=== PATIENT | female | born 1950 | race Two or more races ===

== ENCOUNTER → 2024-02-06 | Outpatient (CLI) | payer MEDICARE, MEDICAID | END | disposition home or self-care (01) | LOC: Rad HDHVI 08:22 | PROVIDERS: ATTEND Internal Medicine Cardiovascular Disease | DX: R07.89 Other chest pain (principal) | CPT/HCPCS: 93306 ==

== ENCOUNTER → 2024-02-14 | Outpatient (CLI) | payer MEDICARE, MEDICAID ==
[~2024-02-14] VITALS: Ht 157.5 cm; Wt 63.5 kg
== END | disposition home or self-care (01) ==
LOC: Rad HDHVI 08:16
PROVIDERS: ATTEND Internal Medicine Cardiovascular Disease
DX: I10 Essential (primary) hypertension (principal); R07.89 Other chest pain; E78.00 Pure hypercholesterolemia, unspecified; I48.91 Unspecified atrial fibrillation
CPT/HCPCS: 78452; 93017; 96374; A9500

== ENCOUNTER 2024-03-19 08:39 | Day surgery (SDC) | payer MEDICARE, MEDICAID ==
[2024-03-18 12:49] LABS: Basophils # (auto) 0 10 ^3/uL (0-0.2); Basophils % (auto) 0.3 % (0.0-2.0); Eosinophils # (auto) 0 10 ^3/uL (0-0.8); Eosinophils % (auto) 0.2 % (0.0-7.0); Hematocrit 43.1 % (36.0-46.0); Hemoglobin 14.8 g/dL (12.2-16.2); Lymphocytes # (auto) 1.2 10 ^3/uL (0.4-5.4); Lymphocytes % (auto) 18.5 % (10.0-50.0); Mean Corpuscular Hemoglobin 29.8 pg (28.0-32.0); Mean Corpuscular Hgb Conc. 34.5 g/dL (32.0-36.0); Mean Corpuscular Volume 86.5 fL (80.0-100.0); Monocytes # (auto) 0.5 10 ^3/uL (0-1.3); Monocytes % (auto) 7.5 % (0.0-12.0); Neutrophils # (auto) 4.8 10 ^3/uL (1.6-8.6); Neutrophils % (auto) 73.5 % (37.0-80.0); Nucleated Red Blood Cells % 0.1 %; Platelet Count (auto) 196 10^3/uL (140-450); Red Blood Cells 4.98 10^6/uL (4.0-5.20); Red Cell Distribution Width 14.9 % (11.8-14.3); White Blood Cell 6.5 10^3/uL (4.4-10.8)
[2024-03-18 13:05] LABS: Chloride 98 mmol/L (98-107); Potassium 3.9 mmol/L (3.5-5.1); Sodium 130 mmol/L (136-145)
[2024-03-18 13:06] LABS: Anion Gap 5 (5-15); Carbon Dioxide 27 mmol/L (20-30)
[2024-03-18 13:07] LABS: Calcium 10.1 mg/dL (8.7-10.4)
[2024-03-18 13:11] LABS: INR 1.12 (0.9-1.15); Partial Thromboplastin Time 29.6 SEC (24.5-34.5); Prothrombin Time 11.8 sec (9.3-11.8)
[2024-03-18 13:12] LABS: BUN/Creatinine Ratio 16.9 (10.0-20.0); Blood Urea Nitrogen 12 mg/dL (9-23); Glucose 102 mg/dL (74-106)
[~2024-03-19] VITALS: Ht 157.5 cm; Wt 62.1 kg
[2024-03-19] VITALS (9 sets, daily range): BP systolic 114–139; BP diastolic 65–79; PULSE 64–88; RESP 13–18; O2SAT 96–98
[2024-03-19] MEDS ORDERED: MIDAZOLAM HCL 2MG/2ML 2ml VIAL (1mg/ml) ONE (10:01)
[2024-03-19] MEDS ORDERED: LIDOCAINE 2%HCL (LOCAL ANESTH.) INJ 20ML MDV ONE (10:01)
[2024-03-19] MEDS ORDERED: fentaNYL CITRATE 100 MCG/2 ML VL ONE (10:01)
[2024-03-19] MEDS ORDERED: HEPARIN SODIUM (PORCINE) 5000 UNITS/ML 1ML VIAL ONE (10:40)
[2024-03-19] MEDS ORDERED: IOHEXOL 350 MG/ML 100ML IJ ONE (10:55)
--- NOTE | 2024-03-19 11:31 | DVHDS ---
DATE OF DISCHARGE: 03/19/2024 DISCHARGE DIAGNOSES: The patient with atrial fibrillation, with sick sinus syndrome, with pauses. HOSPITAL COURSE: The patient underwent successful leadless permanent pacemaker implantation Micra Medtronic device without any complication. The patient is now being discharged home. I have instructed her to hold anticoagulation until Saturday. She is to follow up with me in one day for chest x-ray and EKG and the patient also to be on Keflex for at least 5 days. Stable at the time of discharge. DISPOSITION: Home. ACTIVITY: As instructed. DIET: Will be 2 gram sodium diet. Pacing insertion site, right venous venotomy site was stable. No bleeding. Successful deployment of Perclose device. Chema Francis MD SA/GRANT TID: [id number] RECEIPT: [id number]
--- NOTE | 2024-03-19 11:46 | DVHOP ---
DATE OF SURGERY: 03/19/2024 PROCEDURE PERFORMED: Micra permanent pacemaker implantation Medtronic device. INDICATION: The patient with chronic atrial fibrillation, now with pauses lasting more than 4 seconds. DESCRIPTION OF PROCEDURE: The patient was prepped and draped in a sterile condition. Conscious sedation was given to the patient. Using 2% lidocaine, right groin was anesthetized. Following that, using a Cook needle right femoral vein was engaged with Seldinger technique. A 6-Ukrainian sheath introduced into the right femoral vein. Two Perclose devices were then deployed per protocol. Then, using progressive dilatation using dilators, we were able to progress from a 6 to a 9 to a 12 to an 18 and finally a 24-Ukrainian sheath using a Lunderquist wire as a support wire. The sheath was then placed in the inferior segment of the right atrium. The delivery device was then deployed into the right ventricle. Appropriate orientation was made applying into the septum. The device was then delivered into the low septum. Threshold parameters were obtained. Once appropriate threshold parameters, the device was secured with at least two tyings, adequately anchored. The device was then released. There were no complications. The patient tolerated the procedure. Right femoral venotomy site was then closed using the Perclose device. RESULTS: The patient had Medtronic Micra leadless pacemaker inserted for chronic atrial fibrillation with pauses. Device model number is [id number]. Serial number [id number]. THRESHOLD PARAMETERS: -wave amplitude of 15.1 millivolts. Impedance of 790 ohms. Pacing threshold of 1.3 volts at 0.24 milliseconds. The pacing amplitude was set at 2.5 millivolts. Pulse width of 0.24. Sensitivity of 2.0. Pacing polarity was bipolar. Sensing polarity was bipolar. At this time, the patient has successful implantation of Medtronic Micra permanent pacemaker leadless system. Chema Francis MD SA/SHELLEY/ALPHONSO TID: [id number] RECEIPT: [id number]
--- NOTE | 2024-03-19 11:54 | DVH ---
EXAM: XY CHEST PORTABLE Indication:S/P PACEMAKER Technique: Single frontal view of the chest was obtained Comparison: None FINDINGS: Lines and Tubes: None Lungs: No focal consolidation. Pleura: No effusion. No pneumothorax. Cardiomediastinal contours: Unremarkable Bones: No acute osseous abnormality. IMPRESSION: No acute cardiopulmonary disease.
[2024-03-19] MEDS ORDERED: APIX2.5T PO (13:06)
[2024-03-19] MEDS ORDERED: HYDR12.59 PO (13:06)
[2024-03-19] MEDS ORDERED: LEVO100T8 PO (13:06)
[2024-03-19] MEDS ORDERED: ATOR20TA50 PO (13:06)
[2024-03-19] MEDS ORDERED: ENAL1TAB42 PO (13:06)
--- NOTE | 2024-04-01 17:53 | ECG ---
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
--- NOTE | 2024-04-08 10:18 | ECG ---
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
== END 2024-03-19 13:52 | disposition home or self-care (01) ==
LOC: CATH 08:39
PROVIDERS: ATTEND Internal Medicine Cardiovascular Disease
DX: I49.5 Sick sinus syndrome (principal); Z00.6 Encounter for examination for normal comparison and control in clinical research program; I48.20 Chronic atrial fibrillation, unspecified; I44.30 Unspecified atrioventricular block; I10 Essential (primary) hypertension; Z79.899 Other long term (current) drug therapy; Z82.49 Family history of ischemic heart disease and other diseases of the circulatory system; R07.9 Chest pain, unspecified; R06.02 Shortness of breath; R00.2 Palpitations; R00.1 Bradycardia, unspecified
CPT/HCPCS: 33274; 71045; 93005; C1769; C1786; C1894; J1644; J2250; J3010; Q9967; 36415; 80048; 85025; 85610; 85730; 99152; 99153

== ENCOUNTER → 2024-03-27 | Outpatient (CLI) | payer MEDICARE, MEDICAID ==
[~2024-03-27] MED LIST: APIX2.5T PO; ATOR20TA50 PO; ENAL1TAB42 PO; HYDR12.59 PO; LEVO100T8 PO
== END | disposition home or self-care (01) ==
LOC: Rad HDHVI 10:29
PROVIDERS: ATTEND Internal Medicine Cardiovascular Disease
DX: R06.02 Shortness of breath (principal); Z95.0 Presence of cardiac pacemaker
CPT/HCPCS: 71046

== ENCOUNTER 2024-04-05 05:48 | Inpatient (IN) | payer MEDICARE, MEDICAID ==
[~2024-04-05] VITALS: Ht 154.9 cm; Wt 60.2 kg
[2024-04-05 07:02] LABS: Basophils # (auto) 0 10 ^3/uL (0-0.2); Basophils % (auto) 0.3 % (0.0-2.0); Eosinophils # (auto) 0 10 ^3/uL (0-0.8); Eosinophils % (auto) 0.1 % (0.0-7.0); Hematocrit 41.3 % (36.0-46.0); Hemoglobin 14.2 g/dL (12.2-16.2); Lymphocytes # (auto) 0.9 10 ^3/uL (0.4-5.4); Lymphocytes % (auto) 11.8 % (10.0-50.0); Mean Corpuscular Hemoglobin 29.4 pg (28.0-32.0); Mean Corpuscular Hgb Conc. 34.4 g/dL (32.0-36.0); Mean Corpuscular Volume 85.4 fL (80.0-100.0); Monocytes # (auto) 0.4 10 ^3/uL (0-1.3); Monocytes % (auto) 5.5 % (0.0-12.0); Neutrophils # (auto) 6.4 10 ^3/uL (1.6-8.6); Neutrophils % (auto) 82.3 % (37.0-80.0); Platelet Count (auto) 183 10^3/uL (140-450); Red Blood Cells 4.84 10^6/uL (4.0-5.20); Red Cell Distribution Width 15.4 % (11.8-14.3); White Blood Cell 7.8 10^3/uL (4.4-10.8)
[2024-04-05 07:19] VITALS: PULSE 64; RESP 18; O2SAT 97
[2024-04-05] MEDS: ASPirin 325 MG TAB PO ONE (07:19)
[2024-04-05 07:21] LABS: Alanine Aminotransferase 235 U/L (7-40); Albumin 4.5 g/dL (3.2-4.8); Alkaline Phosphatase 143 U/L (46-116); Anion Gap 6 (5-15); Aspartate Aminotransferase 303 U/L (13-40); BUN/Creatinine Ratio 20.3 (10.0-20.0); Bilirubin, Total 1.1 mg/dL (0.2-1.0); Blood Urea Nitrogen 15 mg/dL (9-23); Calcium 10.1 mg/dL (8.7-10.4); Carbon Dioxide 26 mmol/L (20-30); Chloride 99 mmol/L (98-107); Glucose 114 mg/dL (74-106); Sodium 131 mmol/L (136-145); Total Protein 7.6 g/dL (5.7-8.2)
[2024-04-05 07:46] LABS: Urine Bacteria None Seen /hpf (None Seen)
[2024-04-05 07:54] LABS: Urine Blood Negative /uL (Negative); Urine Clarity Clear (Clear); Urine Color Light-Yellow (Yellow); Urine Protein, UAD Negative (Negative); Urine Specific Gravity 1.011 (1.001-1.035); Urine Urobilinogen Normal (Negative); Urine WBC <1 /hpf (0 - 5); Urine pH 5.5 (5.0-9.0)
[2024-04-05] MEDS ORDERED: SODIUM CHLORIDE 0.9% 1,000 ML IV SCH ×3 (11:15→11:30)
[2024-04-05] MEDS ORDERED: NITROGLYCERIN 0.4 MG SL TAB SL PRN ×2 (11:15→11:30)
[2024-04-05] MEDS ORDERED: ACETAMINOPHEN 325 MG TAB PO PRN ×4 (11:15→11:45)
[2024-04-05] MEDS ORDERED: MORPHINE SULFATE INJ 2 MG/ml SYRG IV PRN ×2 (11:15→11:30)
[2024-04-05] MEDS: SODIUM CHLORIDE 0.9% 1,000 ML IV SCH (11:45)
[2024-04-05 11:52] LABS: HDL Cholesterol 60 mg/dL (40-59); LDL Cholesterol 46 mg/dL (< 100); Triglycerides 51 mg/dL (< 150)
[2024-04-05 11:53] LABS: Cholesterol 121 mg/dL (< 200)
[2024-04-05 19:30] VITALS: PULSE 66; O2SAT 97
[2024-04-05 21:17] VITALS: PULSE 61; RESP 17; O2SAT 98
[2024-04-05 21:20] VITALS: BP 141/68; PULSE 61; RESP 17; TEMP 97.6; O2SAT 98
[2024-04-05] MEDS ORDERED: APIXABAN 2.5 MG TAB PO SCH (22:00)
[2024-04-05] MEDS: APIXABAN 2.5 MG TAB PO SCH (22:15)
[2024-04-06] VITALS (9 sets, daily range): BP systolic 106–135; BP diastolic 62–70; PULSE 50–81; RESP 16–18; TEMP 97.5–97.9; O2SAT 97–100
[2024-04-06] MEDS: LEVOTHYROXINE SODIUM 50 MCG TAB PO SCH (06:22)
[2024-04-06 06:58] LABS: Basophils # (auto) 0 10 ^3/uL (0-0.2); Basophils % (auto) 0.3 % (0.0-2.0); Eosinophils # (auto) 0 10 ^3/uL (0-0.8); Eosinophils % (auto) 0.8 % (0.0-7.0); Hematocrit 39.8 % (36.0-46.0); Hemoglobin 13.6 g/dL (12.2-16.2); Lymphocytes # (auto) 1.1 10 ^3/uL (0.4-5.4); Lymphocytes % (auto) 22.4 % (10.0-50.0); Mean Corpuscular Hemoglobin 29.4 pg (28.0-32.0); Mean Corpuscular Hgb Conc. 34.2 g/dL (32.0-36.0); Mean Corpuscular Volume 85.7 fL (80.0-100.0); Monocytes # (auto) 0.4 10 ^3/uL (0-1.3); Neutrophils # (auto) 3.3 10 ^3/uL (1.6-8.6); Neutrophils % (auto) 67.5 % (37.0-80.0); Nucleated Red Blood Cells % 0.1 %; Platelet Count (auto) 156 10^3/uL (140-450); Red Blood Cells 4.64 10^6/uL (4.0-5.20); Red Cell Distribution Width 15.3 % (11.8-14.3)
[2024-04-06] MEDS ORDERED: LEVOTHYROXINE SODIUM 100 MCG TAB PO SCH (07:00)
[2024-04-06 07:23] LABS: Alanine Aminotransferase 173 U/L (7-40); Alkaline Phosphatase 114 U/L (46-116); Anion Gap 7 (5-15); BUN/Creatinine Ratio 22.8 (10.0-20.0); Blood Urea Nitrogen 13 mg/dL (9-23); Calcium 9.8 mg/dL (8.7-10.4); Carbon Dioxide 25 mmol/L (20-30); Chloride 103 mmol/L (98-107); Glucose 93 mg/dL (74-106); Sodium 135 mmol/L (136-145)
[2024-04-06 07:24] LABS: Aspartate Aminotransferase 133 U/L (13-40); Bilirubin, Total 1.1 mg/dL (0.2-1.0); Total Protein 6.8 g/dL (5.7-8.2)
[2024-04-06] MEDS: ASPirin 81 mg TAB PO SCH (09:56)
[2024-04-06] MEDS: hydroCHLOROthiazide 25 MG TAB PO SCH (09:59)
[2024-04-06] MEDS: ENALAPRIL MALEATE 2.5 MG TAB PO SCH (09:59)
[2024-04-06] MEDS ORDERED: ASPirin 81 mg TAB PO SCH (10:00)
[2024-04-06] MEDS ORDERED: ENALAPRIL MALEATE 2.5 MG TAB PO SCH (10:00)
[2024-04-06] MEDS ORDERED: PATIENTS OWN MEDICATION (Hydrochlorothiazide 12.5 MG) PO SCH (10:00)
[2024-04-06 11:03] LABS: Hepatitis B Surface Antigen Negative (Negative)
[2024-04-06 11:23] LABS: Hepatitis A Ab IgM Negative
[2024-04-06 11:24] LABS: Hepatitis B Core IgM Negative
[2024-04-06 11:25] LABS: Hepatitis C Antibody Negative (Negative)
[2024-04-06] MEDS ORDERED: SODIUM CHLORIDE 0.9% 1,000 ML IV SCH (15:30)
[2024-04-07] VITALS (8 sets, daily range): BP systolic 111–157; BP diastolic 63–72; PULSE 55–76; RESP 16–20; TEMP 97.6–98.7; O2SAT 96–99
[2024-04-07 06:18] LABS: Basophils # (auto) 0 10 ^3/uL (0-0.2); Basophils % (auto) 0.4 % (0.0-2.0); Eosinophils # (auto) 0 10 ^3/uL (0-0.8); Eosinophils % (auto) 0.6 % (0.0-7.0); Hematocrit 39.6 % (36.0-46.0); Hemoglobin 13.6 g/dL (12.2-16.2); Lymphocytes # (auto) 1.3 10 ^3/uL (0.4-5.4); Lymphocytes % (auto) 23.3 % (10.0-50.0); Mean Corpuscular Hemoglobin 29.4 pg (28.0-32.0); Mean Corpuscular Hgb Conc. 34.3 g/dL (32.0-36.0); Mean Corpuscular Volume 85.7 fL (80.0-100.0); Monocytes # (auto) 0.5 10 ^3/uL (0-1.3); Neutrophils # (auto) 3.9 10 ^3/uL (1.6-8.6); Neutrophils % (auto) 67.7 % (37.0-80.0); Nucleated Red Blood Cells % 0.2 %; Platelet Count (auto) 165 10^3/uL (140-450); Red Blood Cells 4.62 10^6/uL (4.0-5.20); Red Cell Distribution Width 15.6 % (11.8-14.3); White Blood Cell 5.7 10^3/uL (4.4-10.8)
[2024-04-07 06:30] LABS: Anion Gap 6 (5-15); Carbon Dioxide 25 mmol/L (20-30); Chloride 103 mmol/L (98-107); Potassium 4.3 mmol/L (3.5-5.1); Sodium 134 mmol/L (136-145)
[2024-04-07 06:36] LABS: Blood Urea Nitrogen 14 mg/dL (9-23); Glucose 91 mg/dL (74-106)
[2024-04-07 07:17] LABS: Bilirubin, Direct 0.4 mg/dL (<0.3); Total Protein 6.9 g/dL (5.7-8.2)
[2024-04-07 08:02] LABS: BUN/Creatinine Ratio 19.7 (10.0-20.0)
[2024-04-07] MEDS: SODIUM CHLORIDE 0.9% 1,000 ML IV SCH (09:20)
[2024-04-08] VITALS (7 sets, daily range): BP systolic 105–140; BP diastolic 65–78; PULSE 60–82; RESP 15–16; TEMP 97.5–97.8; O2SAT 93–99
[2024-04-08 07:50] LABS: Basophils # (auto) 0 10 ^3/uL (0-0.2); Basophils % (auto) 0.4 % (0.0-2.0); Eosinophils # (auto) 0.1 10 ^3/uL (0-0.8); Eosinophils % (auto) 0.8 % (0.0-7.0); Hematocrit 41.4 % (36.0-46.0); Lymphocytes # (auto) 1.3 10 ^3/uL (0.4-5.4); Lymphocytes % (auto) 21.4 % (10.0-50.0); Mean Corpuscular Hemoglobin 29.4 pg (28.0-32.0); Mean Corpuscular Hgb Conc. 33.8 g/dL (32.0-36.0); Mean Corpuscular Volume 87.1 fL (80.0-100.0); Monocytes # (auto) 0.5 10 ^3/uL (0-1.3); Monocytes % (auto) 8.4 % (0.0-12.0); Neutrophils # (auto) 4.3 10 ^3/uL (1.6-8.6); Platelet Count (auto) 185 10^3/uL (140-450); Red Blood Cells 4.76 10^6/uL (4.0-5.20); Red Cell Distribution Width 15.6 % (11.8-14.3); White Blood Cell 6.2 10^3/uL (4.4-10.8)
[2024-04-08 08:13] LABS: Anion Gap 7 (5-15); Carbon Dioxide 26 mmol/L (20-30); Chloride 101 mmol/L (98-107); Potassium 4.2 mmol/L (3.5-5.1); Sodium 134 mmol/L (136-145)
[2024-04-08 08:15] LABS: Calcium 10.3 mg/dL (8.7-10.4)
[2024-04-08 08:19] LABS: Glucose 90 mg/dL (74-106)
[2024-04-08 08:20] LABS: BUN/Creatinine Ratio 24.3 (10.0-20.0); Blood Urea Nitrogen 17 mg/dL (9-23)
[2024-04-08 10:59] LABS: Albumin 4.3 g/dL (3.2-4.8); Bilirubin, Total 0.9 mg/dL (0.2-1.0); Total Protein 7.3 g/dL (5.7-8.2)
[2024-04-08 11:41] LABS: Bilirubin, Direct 0.3 mg/dL (<0.3)
[2024-04-09 01:00] VITALS: BP 116/68; PULSE 70; RESP 18; TEMP 97.6; O2SAT 97
[2024-04-09 05:00] VITALS: BP 120/77; PULSE 58; RESP 18; TEMP 97.9; O2SAT 100
[2024-04-09 08:00] VITALS: PULSE 57
[2024-04-09 09:00] VITALS: BP 109/70; PULSE 63; RESP 17; TEMP 97.9; O2SAT 98
[2024-04-09 13:00] VITALS: BP 113/74; PULSE 67; RESP 17; TEMP 97.9; O2SAT 97
[2024-04-09 16:30] VITALS: BP 135/77; PULSE 74; RESP 17; TEMP 97.8; O2SAT 96
== END 2024-04-09 16:40 | disposition home or self-care (01) | DRG 444 ==
LOC: ER 05:48 → TELE 11:13 → TELE-CENTR 21:17
PROVIDERS: ADMIT Internal Medicine Geriatric Medicine; ATTEND Internal Medicine Cardiovascular Disease
DX: K80.20 Calculus of gallbladder without cholecystitis without obstruction (principal); K85.90 Acute pancreatitis without necrosis or infection, unspecified; E87.1 Hypo-osmolality and hyponatremia; D68.59 Other primary thrombophilia; I48.21 Permanent atrial fibrillation; R07.89 Other chest pain; I49.5 Sick sinus syndrome; N20.0 Calculus of kidney; I10 Essential (primary) hypertension; E03.9 Hypothyroidism, unspecified; R73.03 Prediabetes; E78.5 Hyperlipidemia, unspecified; K21.9 Gastro-esophageal reflux disease without esophagitis; R74.01 Elevation of levels of liver transaminase levels; Z79.01 Long term (current) use of anticoagulants; Z95.0 Presence of cardiac pacemaker; Z79.899 Other long term (current) drug therapy
CPT/HCPCS: 36415; 71045; 76700; 78226; 80048; 80053; 80061; 80074; 80076; 81001; 83690; 83880; 84295; 84443; 84484; 85025; 85379; 93005; G0378

== ENCOUNTER → 2024-08-19 | Outpatient (CLI) | payer MEDICARE, MEDICAID ==
--- NOTE | 2024-08-20 11:30 | DVHSR ---
APPROVED REPORT EXAM: Two-dimensional and M-mode echocardiogram with Doppler and color Doppler. DIMENSIONS LVDd3.6 (3.8-5.7cm)LA (2D)4.1 (1.9-4.0cm)Aortic Root3.1 (2.0-3.7cm) LVDs2.5 (2.5-4.0cm)LA (MM) (1.9-4.0cm)Aortic Cusp Exc1.5 (1.5-2.0cm) EF (%) 55.0 (55-70%)Rt. Atrium4.3 (1.9-4.0cm)Asc. Aorta cm IVSd1.4 (0.7-1.1cm)RV (D) (1.8-2.4cm) PWd1.4 (0.7-1.1cm) Mitral Valve MitralMitral Stenosis E wave1.18m/sMV Mean GR.mmHg E/A ratio0.02D MVAcm2 DECEL [id number] 1/2 Tim[place] Aortic Valve Aortic ValveAortic Stenosis V10.75m/Darwin Mean GR.2mmHg V21.00m/Darwin Peak GR.4mmHg LVOT Diameter1.6 (1.8-2.4cm)Doppler AVA1.51cm2 Pulmonic Valve V20.72m/s Tricuspid Valve TR Velocity2.68m/s [id number] LEFT VENTRICLE The left ventricle is normal size. There is mild concentric left ventricular hypertrophy. The left ventricle is normal in structure and function. The Ejection Fraction is within normal limits. RIGHT VENTRICLE The right ventricle is normal size. ATRIA The left atrium is enlarged. The right atrium is enlarged. The interatrial septum is intact with no evidence for an atrial septal defect. MITRAL VALVE The mitral valve is normal in structure. Mitral annular calcification is borderline. Mitral regurgitation is mild to moderate. PULMONIC VALVE The pulmonic valve is not well visualized. There is mild pulmonic valvular regurgitation. TRICUSPID VALVE The tricuspid valve is grossly normal. There is mild tricuspid regurgitation. Right ventricular systolic pressure is 30-40 mmHg. AORTIC VALVE The aortic valve opens well. The aortic valve is mildly sclerotic. There is trace to mild aortic regurgitation. GREAT VESSELS The aortic root is normal size. PERICARDIAL EFFUSION There is no pericardial effusion. Conclusion EF >55% CONC LVH MOD MR MILD AI MILD TR MILD PI
== END | disposition home or self-care (01) ==
LOC: Rad HDHVI 08:39
PROVIDERS: ATTEND Internal Medicine Cardiovascular Disease
DX: I08.8 Other rheumatic multiple valve diseases (principal); I11.0 Hypertensive heart disease with heart failure; I50.9 Heart failure, unspecified; R42 Dizziness and giddiness
CPT/HCPCS: 93306

== ENCOUNTER 2025-02-01 07:55 | Outpatient (CLI) | payer MEDICARE, MEDICAID ==
[~2025-02-01] VITALS: Ht 157.5 cm; Wt 59.9 kg
== END 2025-02-01 17:00 | disposition home or self-care (01) ==
LOC: Rad HDHVI 07:55
PROVIDERS: ATTEND Internal Medicine Cardiovascular Disease
DX: I49.3 Ventricular premature depolarization (principal); I48.91 Unspecified atrial fibrillation; R07.9 Chest pain, unspecified; I11.0 Hypertensive heart disease with heart failure; I50.9 Heart failure, unspecified; I34.0 Nonrheumatic mitral (valve) insufficiency; I48.20 Chronic atrial fibrillation, unspecified; R00.2 Palpitations; R42 Dizziness and giddiness; R06.02 Shortness of breath; E78.5 Hyperlipidemia, unspecified; I49.5 Sick sinus syndrome; Z95.0 Presence of cardiac pacemaker; Z82.49 Family history of ischemic heart disease and other diseases of the circulatory system
CPT/HCPCS: 78452; 93017; A9500; 96374